=== PATIENT | female | born 1950 | race Caucasian/White ===

== ENCOUNTER 2023-06-03 07:35 | Outpatient (REF) | payer MEDICARE, SELFPAY ==
--- NOTE | ~2023-06-03 | XR_ITS ---
EXAMINATION: XR KNEE, LEFT CLINICAL INFORMATION: Left knee pain COMPARISON: None available. TECHNIQUE: Three views of the left knee. FINDINGS: No evidence for acute fracture or dislocation. There is slight to mild narrowing in the medial joint space compartment. No erosive process or osteochondral lesion. The patellofemoral joint is maintained. No significant joint effusion. There is a rounded calcification measuring 7 mm projecting posterior to the patella on the lateral view, potentially reflecting a loose body. XR/XR knee LT 3V IMPRESSION: 1. No acute process. Slight to mild narrowing in the medial joint space compartment. 2. Possible loose body posterior to the patella on the lateral view.
== END 2023-06-03 07:36 | disposition home or self-care (01) ==
LOC: HO.HOSX 07:35
PROVIDERS: Visit Provider Orthopaedic Surgery
DX: S83.242A Other tear of medial meniscus, current injury, left knee, initial encounter (principal); X58.XXXA Exposure to other specified factors, initial encounter; Y93.9 Activity, unspecified; Y92.9 Unspecified place or not applicable; Y99.9 Unspecified external cause status; Z79.899 Other long term (current) drug therapy
CPT/HCPCS: 73562; 99202

== ENCOUNTER 2023-06-03 10:36 | Outpatient (AMB) | payer MEDICARE, SELFPAY ==
--- NOTE | 2023-06-03 10:47 | MHC.OFFVIS ---
Intake Intake Visit Reasons: New Pt - left knee pain Intake Note: Gina is a 73 year old female who presents today as a new patient for a evaluation for her left knee pain. She describes her pain as sharp in nature. Most of the pain is along the medial aspect of her knee. She states that she did injure her left knee several years ago. She twisted her knee while wearing high heels and had acute onset of pain. Since that time her symptoms have gotten worse in spite of continued non operative treatments. She has done physical therapy which aggravated her pain. She has also tried Tylenol and anti-inflammatory medicines which gave her minimal relief. She has had injections in the past which gave her no relief. She states that her left knee will give out several times per day. She was told in the past by another physician that she might have a ?piece of cartilage stuck in her knee. Allergies Cortisone Allergy (Unknown, Uncoded 06/03/23 10:53) Unknown FEATHERS Allergy (Unknown, Uncoded 06/03/23 10:53) Unknown Latex Gloves Allergy (Unknown, Uncoded 06/03/23 10:53) Unknown TREE POLLAN Allergy (Unknown, Uncoded 06/03/23 10:53) Unknown Medication List - Last Reconciled 06/03/23 by Phil Huffman MD carbamazepine (Tegretol) 200 mg PO DAILY levothyroxine (Synthroid) 75 mcg PO DAILY lorazepam 1 mg PO DAILY PRN PFSH Social History (Updated 06/03/23 @ 10:54 by Ezra Hightower) Alcohol intake: current Patient Tobacco Use Status: Never used Tobacco Current occupational status: retired Physical Exam Const Other: Well-nourished well-developed very friendly female awake alert and oriented x3 in no acute distress Extrem Other: Bilateral lower extremity examination shows good capillary refill, no skin lesions noted, normal sensation light touch Left knee examination shows a minimal effusion, minimal crepitus with range of motion, tenderness along her medial joint line, positive Curry's test, no instability Results Reviewed Results Reviewed: X-rays of the patient's left knee show minimal diffuse joint space narrowing, a loose body within the patellofemoral joint measuring approximately 3 mm x 3 mm x 3 mm, no acute bony abnormalities Assessment & Plan Assessment & Plan (1) Left knee pain: Code(s): M25.562 - Pain in left knee (2) Tear of medial meniscus of left knee: Code(s): S83.242A - Other tear of medial meniscus, current injury, left knee, initial encounter Plan Ms. Angel Moses presents with progressively worsening left knee pain and mechanical symptoms due to the presence of a loose body as well as possible tearing of her medial meniscus. Thus, I will send the patient for an MRI of her left knee for further evaluation. I will see her back once the imaging study is completed to discuss the findings and treatment options. She will continue with her activity modifications in the meantime. Feel free to call me at any time should questions regarding her orthopedic management arise. Thank you very much for asking me to see this very friendly patient. I spent 22 minutes in reviewing the patient's records and imaging studies, seeing the patient and documenting in the medical record. Orders: Orders MR knee LT wo con Today S83.242A - Other tear of medial meniscus, current injury, left knee, initial encounter Coding Level of Care Code New Pt Level 2 (22070) Diagnoses Left knee pain M25.562 Tear of medial meniscus of left knee S83.242A
== END 2023-06-03 11:26 | disposition home or self-care (01) ==
PROVIDERS: PCP Internal Medicine; Visit Provider Orthopaedic Surgery
DX: M25.562 Pain in left knee (principal); S83.242A Other tear of medial meniscus, current injury, left knee, initial encounter
CPT/HCPCS: 99202